=== PATIENT | male | born 1970 | race African-American/Black ===

== ENCOUNTER 2019-07-05 07:24 | Emergency (ER) | payer MEDICAID ==
[~2019-07-05] VITALS: Ht 180.3 cm; Wt 88.0 kg
[2019-07-05] MEDS ORDERED: SULFAMETHOXAZOLE/TRIMETHOPRIM 800/160MG TABLET PO ONE (08:00)
[2019-07-05] MEDS ORDERED: LIDOCAINE 1%/EPI 1:100,000 10 ML VIAL IJ ONE (08:00)
[2019-07-05] MEDS ORDERED: CEPHALEXIN 250MG CAPSULE PO ONE (08:00)
[2019-07-05] MEDS ORDERED: IBUPROFEN 600MG TABLET PO ONE (08:00)
[2019-07-05] MEDS ORDERED: LIDOCAINE HCL/EPINEPHRINE 1%-EPI 1:100,000 20 ML VIAL INFIL ONE (08:15)
[2019-07-05 09:25] VITALS: BP 132/68
== END 2019-07-05 09:34 | disposition home or self-care (01) ==
LOC: ER 07:24
DX: E11.65 Type 2 diabetes mellitus with hyperglycemia (principal); L02.412 Cutaneous abscess of left axilla; Z79.84 Long term (current) use of oral hypoglycemic drugs; Z91.14 Patient's other noncompliance with medication regimen
CPT/HCPCS: 10060; 82962; 87070; 87077; 87186; 87205; 99284; J3490

== ENCOUNTER 2019-07-08 21:56 | Emergency (ER) | payer MEDICAID ==
[~2019-07-08] VITALS: Ht 180.3 cm; Wt 89.0 kg
[2019-07-08 23:33] VITALS: BP 138/75
== END 2019-07-08 23:34 | disposition home or self-care (01) ==
LOC: ER 21:56
DX: Z48.00 Encounter for change or removal of nonsurgical wound dressing (principal); L02.412 Cutaneous abscess of left axilla; R03.0 Elevated blood-pressure reading, without diagnosis of hypertension; E11.9 Type 2 diabetes mellitus without complications; Z91.14 Patient's other noncompliance with medication regimen
CPT/HCPCS: 82962; 99283

== ENCOUNTER 2019-08-06 20:57 | Emergency (ER) | payer MEDICAID ==
[~2019-08-06] VITALS: Ht 180.3 cm; Wt 88.0 kg
[2019-08-06] MEDS ORDERED: IBUPROFEN 600MG TABLET PO ONE (22:00)
[2019-08-06] MEDS ORDERED: CEPHALEXIN 250MG CAPSULE PO ONE (22:00)
[2019-08-06 22:40] VITALS: BP 135/74
== END 2019-08-06 22:41 | disposition home or self-care (01) ==
LOC: ER 20:57
DX: L73.2 Hidradenitis suppurativa (principal); E11.9 Type 2 diabetes mellitus without complications; Z98.890 Other specified postprocedural states
CPT/HCPCS: 99283

== ENCOUNTER 2020-04-25 13:35 | Emergency (ER) | payer MEDICAID ==
[~2020-04-25] VITALS: Ht 167.6 cm; Wt 80.0 kg
[2020-04-25 15:37] LABS: CLARITY URINE CLEAR (CLEAR); COLOR URINE YELLOW (YELLOW); KETONES URINE NEGATIVE (NEGATIVE); LEUKOCYTE ESTERASE URINE NEGATIVE (NEGATIVE); NITRITE URINE NEGATIVE (NEGATIVE); OCCULT BLOOD URINE NEGATIVE (NEGATIVE); PROTEIN URINE NEGATIVE (NEGATIVE); SPECIFIC GRAVITY URINE 1.043 (1.005-1.030)
[2020-04-25 16:12] VITALS: BP 143/95
== END 2020-04-25 16:13 | disposition home or self-care (01) ==
LOC: ER 13:35
DX: M54.5 Low back pain (principal)
CPT/HCPCS: 81003; 99283

== ENCOUNTER 2021-01-23 12:36 | Emergency (ER) | payer MEDICAID, OTHER ==
[~2021-01-23] VITALS: Ht 180.3 cm; Wt 84.0 kg
[2021-01-23 13:17] LABS: BASOPHILS % 0.5 % (0.0-2.0); EOSINOPHILS % 0.5 % (0.0-5.0); HEMATOCRIT. 43.1 % (42.0-52.0); HEMOGLOBIN. 14.3 g/dL (14.0-18.0); LYMPHOCYTES % 21.4 % (20.0-50.0); MEAN CORPUSCULAR HEMOGLOBIN 29.6 pg (28.0-32.0); MEAN CORPUSCULAR VOLUME 89.4 fL (80.0-94.0); MONOCYTES % 8.4 % (2.0-8.0); NEUTROPHILS % 69.2 % (40.0-76.0); PLATELET 411 x1000/uL (130-400); RED BLOOD CELL COUNT 4.83 mill/uL (4.7-6.1); RED CELL DISTRIBUTION WIDTH 12.5 % (11.6-14.6)
[2021-01-23 13:29] LABS: CHLORIDE 98 mEq/L (98-107)
[2021-01-23 13:40] LABS: BETA HYDROXYBUTYRATE 0.1 mMol/L (0.0-0.3)
[2021-01-23 17:28] LABS: CLARITY URINE CLEAR (CLEAR); COLOR URINE YELLOW (YELLOW); KETONES URINE TRACE (NEGATIVE); LEUKOCYTE ESTERASE URINE NEGATIVE (NEGATIVE); NITRITE URINE NEGATIVE (NEGATIVE); OCCULT BLOOD URINE NEGATIVE (NEGATIVE); PROTEIN URINE NEGATIVE (NEGATIVE); SPECIFIC GRAVITY URINE 1.048 (1.005-1.030); UROBILINOGEN URINE 0.2 E.U./dL (0.2-1.0)
[2021-01-23] MEDS ORDERED: LIDOCAINE HCL/EPINEPHRINE 1%-EPI 1:100,000 50 ML VIAL INFIL ONE (19:00)
[2021-01-23] MEDS ORDERED: LIDOCAINE HCL/EPINEPHRINE 1%-EPI 1:100,000 10 ML VIAL INFIL ONE (21:00)
[2021-01-23] MEDS ORDERED: LIDOCAINE HCL/EPINEPHRINE 1%-EPI 1:100,000 20 ML VIAL INFIL ONE (21:15)
[2021-01-23 22:00] VITALS: BP 131/74
[2021-01-23] MEDS ORDERED: SULF1TAB48 MT ×2 (22:11→22:26)
[2021-01-23] MEDS ORDERED: CEPH500C2 MT ×2 (22:11→22:25)
== END 2021-01-23 23:08 | disposition home or self-care (01) ==
LOC: ER 12:36
DX: E11.65 Type 2 diabetes mellitus with hyperglycemia (principal)
CPT/HCPCS: 36415; 71045; 80053; 81003; 82010; 82962; 85025; 99284; J3490; Z7610

== ENCOUNTER 2024-01-23 21:49 | Emergency (ER) | payer OTHER ==
[~2024-01-23] VITALS: Ht 180.3 cm; Wt 88.2 kg
[~2024-01-23 21:49] MED LIST: CEPH500C2 MT; IBUP-2029 MT; IMIT25 MT; SULF1TAB48 MT
[2024-01-23 21:56] VITALS: O2SAT 99
[2024-01-23] MEDS ORDERED: CIPR2.5D20 RIGHTEYE (23:07)
[2024-01-23 23:11] VITALS: BP 194/80; PULSE 84; RESP 18; TEMP 37.05852; O2SAT 100
== END 2024-01-23 23:18 | disposition home or self-care (01) ==
LOC: ER 21:49
DX: H10.31 Unspecified acute conjunctivitis, right eye (principal); R23.2 Flushing
CPT/HCPCS: 99283